=== PATIENT | female | born 1965 | race Caucasian/White ===

== ENCOUNTER 2018-08-15 14:42 | Outpatient (REF) | payer BC, SELFPAY ==
[2018-08-15 18:39] LABS: Hemoglobin A1C 5.8 % (4.5-6.2)
[2018-08-15 18:48] LABS: TSH 3.24 uIU/mL (0.358-3.74)
== END 2018-08-15 15:02 ==
LOC: NCHCN 14:42
PROVIDERS: PCP Physician Assistant; Visit Provider Physician Assistant Medical
DX: E03.9 Hypothyroidism, unspecified (principal); I10 Essential (primary) hypertension
CPT/HCPCS: 83036; 84443

== ENCOUNTER 2020-08-22 18:39 | Outpatient (REF) | payer BC, SELFPAY ==
[2020-08-22 18:56] LABS: ALT 32 U/L (14-59); AST 20 U/L (15-37); Albumin 3.5 g/dL (3.4-5.0); Alkaline Phosphatase 151 U/L (46-116); Anion Gap 6.7 mmol/L (3-11); BUN 11 mg/dL (7-18); Bilirubin, Total 0.3 mg/dL (0.2-1.0); CO2 28.3 mmol/L (21.0-32.0); CREATININE 0.8 mg/dL (0.55-1.02); Chloride 103 mmol/L (98-107); FREE T4 0.92 ng/dL (0.76-1.46); Glucose 103 mg/dL (74-106); Potassium 4.5 mmol/L (3.5-5.1); Sodium 138 mmol/L (136-145); TSH 3.28 uIU/mL (0.36-3.74); Total Protein 7.2 g/dL (6.4-8.2)
== END 2020-08-22 18:40 | disposition home or self-care (01) ==
LOC: NCHCN 18:39
PROVIDERS: PCP Physician Assistant; Visit Provider Physician Assistant
DX: E03.9 Hypothyroidism, unspecified (principal); Z83.79 Family history of other diseases of the digestive system; K58.9 Irritable bowel syndrome, unspecified
CPT/HCPCS: 80053; 84439; 84443

== ENCOUNTER 2020-08-23 19:53 | Emergency (ER) | payer BC, SELFPAY ==
[2020-08-23 20:01] VITALS: BP 196/85; PULSE 103; RESP 18; TEMP 36.5; O2SAT 93
--- NOTE | 2020-08-23 21:49 | ED.GENADUL_ITS ---
Discharge Plan Disposition Patient Disposition: HOME Condition: Good Discharge Details Clinical Impression: Laceration Primary Care Provider: Tyler Roth ED Provider: Sarai Morocho Home Meds and New Rx's Prescriptions: No Action fluticasone propion-salmeterol [Advair Diskus] 250-50 mcg/dose Blister With Device 1 inh INHALATION DAILY RF: 0 albuterol sulfate [Ventolin HFA] 90 mcg/actuation Hfa Aerosol Inhaler 2 inh INHALATION TID PRNRF: 0 Discharge Instructions Instructions: Laceration (ED) Additional Instructions: Suture removal in 12 days Keep leg straight as possible, use your crutches if you need to ambulate, elevate your leg as frequently as possible Ibuprofen and Tylenol as needed for pain Return immediately with redness, purulent drainage, or with any new or worsening complaints Medical Decision Making No fracture is ordered as patient has full range of motion, my suspicion for fracture is quite low There is no evidence of tendon involvement There is also preserved sensation Neurovascularly intact Sutures placed without incident Tetanus up-to-date per patient Sutures will need to be removed in 12 to 14 days Discharge home stable condition with stable vitals No indication for antibiotics at this time as there is no obvious debris in wound and it was irrigated copiously Differential Diagnosis Differential Diagnosis: Fracture, laceration, abrasion, contusion HPI 55-year-old female presents with laceration to left knee. She states she fell onto her right knee. She denies any additional injuries. She denies any pain with flexion and extension. She states her tetanus is up-to-date. She denies strength or sensation changes or any additional, time. The event occurred approximately an hour prior to arrival. General Date/Time Provider Initiated Documentation: 08/23/20 21:48 . Related Data Home Medications Medication Instructions Recorded Confirmed albuterol sulfate [Ventolin HFA] 2 inh INHALATION TID PRN 08/23/20 08/23/20 fluticasone propion-salmeterol 1 inh INHALATION DAILY 08/23/20 08/23/20 [Advair Diskus] Allergies Allergy/AdvReac Type Severity Reaction Status Date / Time Penicillins Allergy Intermediate Hives Unverified 08/23/20 22:03 General Stated Complaint: Laceration BHAVANI: 4 Review of Systems Narrative: Review of systems negative x3 aside from where indicated in HPI PFSH Social History Smoking/Tobacco Use Status: Current every day Tobacco Type: cigarettes Smoking risk assessment performed?: Yes Alcohol Intake: current Alcohol Intake frequency: a few times a month Alcohol type: beer Drug use: Never Substance use type: does not use Do you feel safe at home: Yes Exam Const General: cooperative and healthy appearing Extrem Right lower extremity: normal capillary refill Other: Right lower extremity appears knee with 2 inch laceration into subcutaneous tissue, flexion and extension intact, no evidence of joint involvement Course Vital Signs Vital signs: Vital Signs Temperature 36.5 C 08/23/20 20:01 Pulse 103 H 08/23/20 20:01 Respiratory Rate 18 08/23/20 20:01 Blood Pressure 196/85 H 08/23/20 20:01 Pulse Oximetry 93 08/23/20 20:01 Temperature 36.5 C 08/23/20 20:01 Temperature Source Temporal Artery Scan 08/23/20 20:01 Pulse 103 H 08/23/20 20:01 Respiratory Rate 18 08/23/20 20:01 Respiratory Effort Non-Labored 08/23/20 20:03 Blood Pressure 196/85 H 08/23/20 20:01 Pulse Oximetry 93 08/23/20 20:01 Oxygen Delivery Method Room Air 08/23/20 20:01 Oxygen Flow Rate 0 08/23/20 20:01 Pain Level 0 08/23/20 20:01 Procedures Laceration Laceration 1: Site: lower extremity Side (If applicable): right Description: linear Local Anesthetic: Lidocaine 1% Amount of anesthesia used (mL): 10 Skin layer closed with: nylon Size (cm): 4-0 Number of sutures: 7 Technique: simple, interrupted Subcutaneous layer closed with: vicryl Size: 3-0 Number of sutures: 8 Technique: running
[2020-08-23 22:01] VITALS: BP 145/63; PULSE 91; RESP 18; O2SAT 94
== END 2020-08-23 22:05 | disposition home or self-care (01) ==
PROVIDERS: Emergency Provider Physician Assistant; PCP Physician Assistant
DX: S81.012A Laceration without foreign body, left knee, initial encounter (principal); W19.XXXA Unspecified fall, initial encounter
CPT/HCPCS: 12032

== ENCOUNTER 2021-07-08 14:02 | Outpatient (REF) | payer BC, SELFPAY ==
[2021-07-08 20:36] LABS: Hemoglobin A1C 5.6 % (<5.7)
[2021-07-08 20:45] LABS: Anion Gap 9.4 mmol/L (3-11); BUN 20 mg/dL (7-18); CO2 28.6 mmol/L (21.0-32.0); CREATININE 0.9 mg/dL (0.55-1.02); Chloride 102 mmol/L (98-107); Glucose 104 mg/dL (74-106); Potassium 4.5 mmol/L (3.5-5.1); Sodium 140 mmol/L (136-145); TSH (W/Ref FT4) 2.08 uIU/mL (0.36-3.74)
== END 2021-07-08 14:03 | disposition home or self-care (01) ==
LOC: NCHCN 14:02
PROVIDERS: PCP Physician Assistant; Visit Provider Physician Assistant
DX: E03.9 Hypothyroidism, unspecified (principal); R73.03 Prediabetes
CPT/HCPCS: 80048; 83036; 84443

== ENCOUNTER 2023-06-28 11:50 | Outpatient (REF) | payer BC, SELFPAY ==
--- OUTSIDE RECORDS SUMMARY | 2023-06-28 11:53 | XMS_ITS | Continuity of Care Document ---
Author Name Unknown Organization [facility] Address [address] [place] [address] Care Team Providers Care Chute Loader Name Role Phone Kasey Howard Primary Care Physician Encounter [facility] [id number] Date(s): 08/13/22 - 08/13/[address] [address] Discharge Disposition: Home or Self Care Attending Physician: Kasey Howard PA-C Admitting Physician: Kasey Howard PA-C Referring Physician: Kasey Howard PA-C Allergies, Adverse Reactions, Alerts Substance Reaction Severity Status penicillins Urticaria Unknown Active Assessment and Plan Future Appointments Future Scheduled Tests Radiology* MG Mammo Screening Bilateral w/ Kash 08/04/22 Immunizations Given and Recorded Vaccine Date Status Refusal Reason tetanus/diphth/pertuss (Tdap) adult/adol 07/24/08 Recorded Medications levothyroxine 0 Refill(s) Start Date: 08/04/22 Status: Ordered Procedures Procedure Date Related Diagnosis Body Site Status PAP test date 1 08/29/18 Completed Colonoscopy 2017 Completed Gallbladder 07/14/16 Completed Colposcopy 2 08/04/08 Completed Tubal ligation 1992 Completed Pap and HPV nl- 5 yr pap 2023; 09/07/2013-WNL/Neg. 5 yr pap 09/07/18; 09/03/11- WNL, 08/20/08 LEEP- HGSIL, 07/24/08 HGSIL, Colpo HUMBLE II 2Ectocervix: consistent with LGSIL. ECC: HSIL/HUMBLE II Social History Social History Type Response Tobacco Former tobacco user Tobacco Use:. Sex Female Patient Care team information Care Team Personnel Name: Kasey Howard PA-C Position: PowerChart View Only Member Role: Primary Care Physician Address: Address: [address] [address] [place] Care Team Related Persons Name: RAFFY CARLYLE Address: Home
--- OUTSIDE RECORDS SUMMARY | 2023-06-28 11:53 | XMS_ITS | Continuity of Care Document ---
Author Name Unknown Organization [facility] Address [address] [place] [address] Care Team Providers Care Telephone Station Repairer Name Role Phone Kasey Howard Primary Care Physician [phone] [facility] Date(s): 08/04/22 - 08/04/[address] [address] Discharge Disposition: Home or Self Care Attending Physician: Katerin Anders MD Admitting Physician: Katerin Anders MD Referring Physician: Katerin Anders MD Allergies, Adverse Reactions, Alerts Substance Reaction Severity Status penicillins Urticaria Unknown Active Assessment and Plan Future Appointments Diagnostic Tests Pending * PAP Test [facility] 08/04/22 Future Scheduled Tests Radiology* MG Mammo Screening Bilateral w/ Kash 08/04/22 Immunizations Given and Recorded Vaccine Date Status Refusal Reason tetanus/diphth/pertuss (Tdap) adult/adol 07/24/08 Recorded Medications levothyroxine 0 Refill(s) Start Date: 08/04/22 Status: Ordered Procedures Procedure Date Related Diagnosis Body Site Status PAP test date 1 08/29/18 Completed Colonoscopy 2017 Completed Gallbladder 07/14/16 Completed Colposcopy 2 08/04/08 Completed Tubal ligation 1991 Completed Pap and HPV nl- 5 yr pap 2023; 09/07/2013-WNL/Neg. 5 yr pap 09/07/18; 09/03/11- WNL, 08/20/08 LEEP- HGSIL, 07/24/08 HGSIL, Colpo HUMBLE II 2Ectocervix: consistent with LGSIL. ECC: HSIL/HUMBLE II Social History Social History Type Response Tobacco Former tobacco user Tobacco Use:. Sex Female Patient Care team information Personnel Name: Kasey Howard PA-C Address: Address: [address] [address]- [place]
--- OUTSIDE RECORDS SUMMARY | 2023-06-28 11:53 | XMS_ITS | Continuity of Care Document ---
Author Name Unknown Organization [facility] Address [address] [place] [address] Care Team Providers Care Security Installation Sales Technician Name Role Phone Kasey Howard Primary Care Physician [phone] Encounter [facility] Date(s): 06/25/22 - 06/25/[address] [address] Discharge Disposition: Home or Self Care Attending Physician: Kasey Howard PA-C Admitting Physician: Kasey Howard PA-C Referring Physician: Kasey Howard PA-C Allergies, Adverse Reactions, Alerts Substance Reaction Severity Status penicillins Urticaria Unknown Active Assessment and Plan Future Appointments Immunizations Given and Recorded Vaccine Date Status Refusal Reason tetanus/diphth/pertuss (Tdap) adult/adol 07/24/08 Recorded Social History Social History Type Response Sex Female Patient Care team information Personnel Name: Kasey Howard PA-C Address: Address: [id number] [place] [address]
--- OUTSIDE RECORDS SUMMARY | 2023-06-28 11:54 | XMS_ITS | Continuity of Care Document ---
Author Name Unknown Organization [facility] Address [address] [place] [address] Care Team Providers Care Filter Tank Tender Name Role Phone RIMA MIRZA PA-C Primary Care Physicia n Encounter [facility] [id number] Date(s): 09/13/22 - 09/13/22 [facility] [address] [place] [address] [place] Assessment and Plan Future Appointments Social History Social History Type Response Sex Female Patient Care team information Care Team Personnel Name: RIMA MIRZA PA-C Position: No Access Member Role: Primary Care Physician Address: Address: [address] [place] [id number]
--- OUTSIDE RECORDS SUMMARY | 2023-06-28 11:54 | XMS_ITS | Continuity of Care Document ---
Author Name Unknown Organization [facility] Address [address] [place] [address] Care Team Providers Care Well Puller Name Role Phone YUKI HELMS, RIMA GARNICA Primary Care Physicia n Encounter [facility]BR [id number] Date(s): 09/24/22 - 09/24/22 [facility] [address] [place] [address]- Encounter Diagnosis Left rotator cuff tear(Discharge Diagnosis) - 09/24/22 Discharge Disposition: Home or Self Care Attending Physician: Cayden Madden MD Allergies, Adverse Reactions, Alerts Substance Reaction Severity Status penicillin Unknown Active lisinopril Unknown Active Functional Status 09/24/22 Other exposure to Infectious Disease Non e Medications amLODIPine 10 mg oral tablet 10 mg = 1 tab, Oral, Daily, # 30 tab, 0 Refill(s) Start Date: 09/24/22 Status: Ordered Claritin 10 mg oral tablet 10 mg = 1 tab, Oral, Daily, # 30 tab, 0 Refill(s) Start Date: 09/24/22 Status: Ordered levothyroxine 25 mcg (0.025 mg) oral tablet 90 EA, TAKE ONE TABLET BY MOUTH EVERY DAY, 0 Refill(s) Start Date: 09/24/22 Status: Ordered Ventolin HFA 90 mcg/inh inhalation aerosol 1 puffs, Inhale, every 4 hr, PRN as needed for wheezing, # 8 g, 0 Refill(s) Start Date: 09/24/22 Status: Ordered Problem List Condition Confirmation Course Effective Dates Status H ealth Status Informant Breast hematoma Confirmed Active Elevated blood sugar Confirmed Active Hyperlipidemia Confirmed Active HTN (hypertension) Confirmed Active Hypothyroidism Confirmed Active IBS (irritable bowel syndrome) Confirmed Active Left rotator cuff tear Confirmed Active Vital Signs Most recent to oldest [Reference Range]: 1 Peripheral Pulse Rate [60-100 bpm] 86 bp m (09/24/22 1:42 PM) Respiratory Rate [12-24 br/min] 97 br/mi n *HI* (09/24/22 1:42 PM) Blood Pressure [90-140/60-90 mmHg] 138/8 2mmHg (09/24/22 1:42 PM) Weight 124.74 kg (09/24/22 1:36 PM) Weight Measured (lbs) 275.004 lb (09/24/22 1:36 PM) Height 167.64 cm (09/24/22 1:36 PM) Height/Length Measured (inches) 66 inch (09/24/22 1:36 PM) BSA Measured 2.41 m2 (09/24/22 1:36 PM) Body Mass Index 44.39 kg/m2 (09/24/22 1:36 PM) Social History Social History Type Response Tobacco Never tobacco user T obacco Use:. Sex Female Physician Outpatient Note * Cayden Madden MD: PERFORM Event Display: Office Clinic Note Physician Authored Date: [id number] GEE AKBAR Morenita :1965 Age:57 years Sex:Female Visit Date:09/24/2022 Primary Care Physician: RIMA MIRZA PA-C Chief Complaint L shoulder History of Present Illness The patient is a 57-year-old female who says several years of??increasing pain to the left shoulder.?? Over the years she has had several subacromial injections and done some therapy??that these interventions would give her temporary relief of her pain but she says the pain is again returned. ??Shehas difficulty with lifting she has pain with reaching??she has pain night when she sleeps.?? She had an MRI performed and she brings this in for review. Physical Exam Vitals & Measurements HR:??86??(Peripheral)?? RR:??97?? BP:??138/82?? HT:??167.64??cm?? WT:??124.74??kg?? BMI:??44.39?? BSA:??2.41?? Review of studies: X-rays of the left shoulder are reviewed and are negative. MRI the patient's left shoulder reviewed and shows a small full-thickness tear of the supraspinatus. ??The subscap and biceps looks to be intact.?? There are some mild glenohumeral??chondral loss. ?? Both shoulders are examined. Range of motion of the shoulder is examined in the forward elevation, abduction, external rotation and internal rotation behind the back planes. External rotation is assessed both with the arm in neutral adduction and at 90 degrees of abduction. Similarly internal rotation is performed at 90 degrees of abduction and is compared with the contralateral side. Neer and Jean impingement signs are examined. Strength is assessed in forward elevation, abduction, externaland internal rotation planes.?Cross-arm adduction test is examined. The shoulder is systematically palpated anteriorlyin the region of the coracoid process, the anterior joint line and bicipital groove. The AC joint is palpated. The greater tuberosity is palpated. The posterior joint line is palpated. Vick and active compression tests are performed. The supraspinatus and infraspinatus fossa are examined for signs of atrophy. Stability is test using the apprehension, relocation and Jerk Test. ?? Focused exam of the left shoulder shows patient with??150 degrees of active elevation,??160 degrees of passive elevation, she has positive impingement signs, pain with cuff isolation.?? 4 out of 5strength abduction, 4+ out of 5 strength external rotation,??5-/5 to internal rotation, no glenohumeral instability, no tenderness at the AC joint Assessment/Plan 1.??Left rotator cuff tear??M75.102 Patient with??small full-thickness rotator cuff tear, patient failed multiple injections and physical therapy so I have suggested we should perform??an arthroscopic rotator cuff repair.?? We discussed nature of surgery rehab, we discussed risks including infection, loss of motion, neurologic injury, incomplete pain relief,??patient understand these risks??she is not ready to have surgery??now shewants to??wait until she is laid off from work??so she will let me know??when the timing suture andwill complete the repair??she does understand that the longer she waits there is some risk that this tear will get larger and affect her??long-term outcome. Problem List/Past Medical History Ongoing Breast hematoma Elevated blood sugar HTN (hypertension) Hyperlipidemia Hypothyroidism IBS (irritable bowel syndrome) Left rotator cuff tear Morbid obesity Historical No qualifying data Medications amLODIPine 10 mg oral tablet, 10 mg= 1 tab, Oral, Daily Claritin 10 mg oral tablet, 10 mg= 1 tab, Oral, Daily levothyroxine 25 mcg (0.025 mg) oral tablet Ventolin HFA 90 mcg/inh inhalation aerosol, 1 puffs, Inhale, every 4 hr, PRN Allergies lisinopril penicillin Social History Electronic Cigarette/Vaping Electronic Cigarette Use: Never. Tobacco Never tobacco user Tobacco Use:. Electronically Signed on 09/24/22 02:06 PM Cayden Madden MD Patient Care team information Care Team Personnel Name: YUKI HELMS, RIMA GARNICA Position: No Access Member Role: Primary Care Physician Address: Address: [address] [place] [address]- Care Team Related Persons Name: BALTAZAR AKBAR Name: CARLYLE AKBAR Address: Home [address] [place] [address] [place]
--- OUTSIDE RECORDS SUMMARY | 2023-06-28 11:54 | XMS_ITS | Continuity of Care Document ---
Author Name Unknown Organization [facility] Address [address] [place] [address] Care Team Providers Care Electronic Imaging System Operator Name Role Phone Kasey Howard Primary Care Physician [facility] [id number] Date(s): 08/23/22 - 08/23/[address] [address] Encounter Diagnosis Encounter for annual routine gynecological examination(Discharge Diagnosis) - 08/23/22 Discharge Disposition: Home or Self Care Attending [...] Diagnosis Body Site Status PAP test date 1, 2 08/03/22 Comple [place] Colonoscopy 2017 Completed Gallbladder 07/14/16 Completed Colposcopy 3 08/04/08 Completed Tubal ligation 1991 Completed Pap and HPV nl- 5 yr pap 2023; 09/07/2013-WNL/Neg. 5 yr pap 09/07/18; 09/03/11-02/21- WNL, 08/20/08 LEEP- HGSIL, 07/24/08 HGSIL, Colpo HUMBLE II pap nl, HPV neg, next pap due 5 yrs -08/2027 3Ectocervix: consistent with LGSIL. ECC: HSIL/HUMBLE II Social History Social History Type Response Tobacco Former tobacco user Tobacco Use:. Sex Female Patient Care team information Care Team Personnel Name: Kasey Howard PA-C Position: PowerChart View Only Member Role: Primary Care Physician Address: Address: [address] [address]- Care Team Related Persons Name: CARLYLE AKBAR Address: Home
[2023-06-28 19:17] LABS: Abs Immature Grans 0.03 10^3/uL (0.0-0.06); Absolute Eosinophil Count 0.29 10^3/uL (0.0-0.7); Absolute Lymphocyte Count 2.59 10^3/uL (1.2-3.4); Absolute Neutrophil Count 4.78 10^3/uL (1.2-6.7); Basophils % 1.2; ESR 31 mm/hr (0-30); Eosinophils % 3.4; HCT 42.5 % (36.0-46.0); HGB 14.2 g/dL (11.2-15.7); Immature Grans % 0.4; Lymphocytes % 30.5; MCH 31.1 pg (27.0-33.0); MCHC 33.4 % (32.0-36.0); MCV 93 fL (80-95); MPV 10.9 fL (8.0-11.0); Monocytes % 8.2; Neutrophils % 56.3; Platelet Count 348 10^3/uL (130-400); RBC 4.57 10^6/uL (3.93-5.22); RDW 12.3 % (11.7-14.6); RDW-SD 42.5 fL; WBC 8.49 10^3/uL (4.4-10.8)
[2023-06-28 19:35] LABS: ALT 27 U/L (14-59); AST 22 U/L (15-37); Albumin 3.5 g/dL (3.4-5.0); Alkaline Phosphatase 159 U/L (46-116); Anion Gap 5.1 mmol/L (3-11); BUN 16 mg/dL (7-18); Bilirubin, Total 0.5 mg/dL (0.2-1.0); CO2 28.9 mmol/L (21.0-32.0); CREATININE 0.9 mg/dL (0.55-1.02); Chloride 102 mmol/L (98-107); Glucose 111 mg/dL (74-106); LDL CHOLESTEROL 131 mg/dL (<100); Potassium 4.1 mmol/L (3.5-5.1); Sodium 136 mmol/L (136-145); Total Protein 7.6 g/dL (6.4-8.2)
[2023-06-28 19:36] LABS: Hemoglobin A1C 5.4 % (<5.7)
[2023-06-28 19:42] LABS: C-Reactive Protein 0.12 mg/dL (0.0-0.3)
[2023-06-30 15:07] LABS: ANA Interpretation Negative (Negative)
== END 2023-06-28 11:51 | disposition home or self-care (01) ==
LOC: NCHCN 11:50
PROVIDERS: PCP Physician Assistant; Visit Provider Physician Assistant
DX: I10 Essential (primary) hypertension (principal); R73.9 Hyperglycemia, unspecified; R21 Rash and other nonspecific skin eruption; R70.0 Elevated erythrocyte sedimentation rate
CPT/HCPCS: 80053; 83721; 85652; 83036; 84443; 85025; 86038; 86140

== ENCOUNTER 2023-08-25 15:25 | Outpatient (REF) | payer OTHER, SELFPAY | END 2023-08-25 15:26 | disposition home or self-care (01) | LOC: NCHCN 15:25 | PROVIDERS: PCP Physician Assistant; Referring Provider Physician Assistant; Visit Provider Physician Assistant | DX: E03.9 Hypothyroidism, unspecified (principal) | CPT/HCPCS: 84443 ==

== ENCOUNTER 2024-06-28 09:52 | Outpatient (REF) | payer OTHER, SELFPAY ==
[2024-06-28 19:39] LABS: ALT 17 U/L (14-59); AST 23 U/L (15-37); Albumin 3.6 g/dL (3.4-5.0); Alkaline Phosphatase 142 U/L (46-116); BUN 15 mg/dL (7-18); Bilirubin, Total 0.43 mg/dL (0.2-1.0); Calcium 10.1 mg/dL (8.5-10.1); Calculated LDL 149 mg/dL (<100); Chloride 102 mmol/L (98-107); Cholesterol 241 mg/dL (<200); Estimated GFR 66.12 (mL/min/1.73m2); Glucose 96 mg/dL (74-106); HDL Cholesterol 70 mg/dL (40-60); Potassium 3.9 mmol/L (3.5-5.1); Sodium 141 mmol/L (136-145); Total Protein 7.7 g/dL (6.4-8.2); Triglyceride 112 mg/dL (<150)
== END 2024-06-28 09:53 | disposition home or self-care (01) ==
LOC: NCHCN 09:52
PROVIDERS: PCP Physician Assistant; Visit Provider Physician Assistant
DX: E03.9 Hypothyroidism, unspecified (principal); I10 Essential (primary) hypertension; E78.5 Hyperlipidemia, unspecified
CPT/HCPCS: 80053; 80061; 84443